=== PATIENT | female | born 1965 | race Native Hawaiian/Other Pacific Islander ===

== ENCOUNTER 2017-04-20 09:52 | Emergency (ER) | payer BC ==
[2017-04-20 10:12] VITALS: O2SAT 100
--- NOTE | 2017-04-20 11:17 | ERPHSYRPT ---
- History of Present Illness Time Seen by Provider: 04/20/17 11:11 Source: patient Exam Limitations: no limitations Patient Subjective Stated Complaint: pt states approx 2200 last night she felt dizzy, weak, nause, denies vomiting, dyspnea during the event, pain upper left should x 1 week, denies injury, denies cough, denies congestion, states right should has had pain for approximately 1 month but felt it was strain, left should pain described as dull, non radiating, has had pain in this area before with relief from chiropracter, Triage Nursing Assessment: pt alert and oriented, calm, cooperative, able to answer questions appropriately, states she feels tired but denies dizziness, denies dyspnea, states she does have asthma and allergies, feels she has to "take a deep breath" every once in awhile, patient states she us under "a great deal of stress right now" Physician History: The patient is a 52-year-old female who became dizzy last night at about 10 PM. It worsened when she would bend over to fold laundry. She then went to bed and the room began to spin. She does on and off until 4 AM when her son put 2 extra blankets on her and she fell asleep. She denies being short of breath, although she said she would wake up during the night gasping. She denies chest pain. She denies nausea or vomiting. She is now feeling much better. She comes in stating "I just want to be checked out". Her past medical history is significant for diabetes and cholecystectomy. She is also had 3 surgeries on her right knee. Timing/Duration: yesterday, resolved prior to arrival, gradual onset Severity: severe Modifying Factors: Improves With: nothing Associated Symptoms: other (dizzy) Allergies/Adverse Reactions: No Known Drug Allergies Allergy (Unverified 04/20/17 10:26) Home Medications: Desloratadine/Pseudoephedrine [Clarinex-D 12 Hour Tablet] 1 each PO DAILY [History] Metformin HCl 500 mg [Glucophage 500 MG] 1,000 mg PO DAILY 04/20/17 [ History] Hx Tetanus, Diphtheria Vaccination/Date Given: Yes Hx Influenza Vaccination/Date Given: Yes Hx Pneumococcal Vaccination/Date Given: No - Review of Systems Constitutional: No Fever, No Chills Eyes: No Symptoms Ears, Nose, & Throat: No Symptoms Respiratory: No Cough, No Dyspnea Cardiac: No Chest Pain, No Edema, No Syncope Abdominal/Gastrointestinal: No Abdominal Pain, No Nausea, No Vomiting, No Diarrhea Genitourinary Symptoms: No Dysuria Musculoskeletal: No Back Pain, No Neck Pain Skin: No Rash Neurological: Dizziness Psychological: No Symptoms Endocrine: No Symptoms Hematologic/Lymphatic: No Symptoms Immunological/Allergic: No Symptoms All Other Systems: Reviewed and Negative - Past Medical History Pertinent Past Medical History: Yes Endocrine Medical History: Diabetes Type II - Past Surgical History Past Surgical History: Yes Gastrointestinal: Cholecystectomy Musculoskeletal: Orthopedic Surgery Other Surgical History: uterine ablation - Social History Smoking Status: Never smoker Exposure to second hand smoke: No Patient Lives Alone: Yes - Female History Hx Last Menstrual Period: ablation - Nursing Vital Signs Nursing Vital Signs: Initial Vital Signs Temperature 99.6 F Temperature Source Oral Pulse Rate 84 Respiratory Rate 18 Blood Pressure [Right Arm] 120/82 Pain Intensity 0 - Physical Exam General Appearance: no apparent distress, alert Eye Exam: PERRL/EOMI, eyes nml inspection Ears, Nose, Throat Exam: normal ENT inspection, TMs normal, pharynx normal, moist mucous membranes Neck Exam: normal inspection, non-tender, supple, full range of motion Respiratory Exam: normal breath sounds, lungs clear, No respiratory distress Cardiovascular Exam: regular rate/rhythm, normal heart sounds, normal peripheral pulses Gastrointestinal/Abdomen Exam: soft, normal bowel sounds, No tenderness, No mass Pelvic Exam: deferred Rectal Exam: deferred Back Exam: normal inspection Extremity Exam: normal inspection, normal range of motion, pelvis stable Neurologic Exam: alert, oriented x 3, cooperative, normal mood/affect, nml cerebellar function, nml station & gait, sensation nml, No motor deficits Skin Exam: normal color, warm, dry, No rash Lymphatic Exam: No adenopathy SpO2 Interpretation: normal SpO2: 100 Oxygen Delivery: Room Air - Course EKG Interpreted by Me: RATE, Sinus Rhythm, NORMAL AXIS, NORMAL INTERVALS, NORMAL QRS, NORMAL ST-T - Radiology Exams Chest X-ray Interpretation: Teleradiologist Report, Negative (per DR Riley) Ordered Tests: Active Orders 24 hr Category Date Time Status EKG-ER Only STAT Care 04/20/17 11:21 Active Orthostatic Vital Signs STAT Care 05/24/17 10:33 Active CHEST 2 VIEWS (PA AND LAT) Stat Exams 04/20/17 11:22 Completed CBC W DIFF Stat Lab 04/20/17 11:45 Completed CMP Stat Lab 04/20/17 11:45 Completed HCG QUALITATIVE,SERUM Stat Lab 04/20/17 11:45 Completed TROPONIN Stat Lab 04/20/17 11:45 Completed UA W/ MICROSCOPIC Stat Lab 04/20/17 11:45 Completed Lab/Rad Data: Laboratory Result Diagrams 04/20/17 11:45 04/20/17 11:45 Laboratory Results 04/20/17 04/20/17 04/20/17 Range/Units 11:45 11:45 11:45 WBC (4.0-10.5) K/mm3 RBC (4.1-5.4) M/mm3 Hgb (12.0-16.0) gm/dl Hct (35-47) % MCV (78-100) fl MCH (26-32) pg MCHC (32-36) g/dl RDW (11.5-14.0) % Plt Count (150-450) K/mm3 MPV (6-9.5) fl Gran % (36.0-66.0) % Lymphocytes % (24.0-44.0) % Monocytes % (0.0-12.0) % Eosinophils % (0.00-5.0) % Basophils % (0.0-0.4) % Basophils # (0-0.4) Sodium 143 (136-145) mEq/L Potassium 3.6 (3.5-5.1) mEq/L Chloride 107 (98-107) mEq/L Carbon Dioxide 27.1 (21-32) mEq/L Anion Gap 12.1 (5-15) MEQ/L BUN 9 (9-20) mg/dL Creatinine 0.65 (0.55-1.30) mg/dl Estimated GFR > 60 ML/MIN Glucose 89 (70-110) MG/DL Calcium 9.1 (8.5-10.1) mg/dL Total Bilirubin 0.3 (0.2-1.0) mg/dL AST 14 L (15-37) U/L ALT 17 (12-78) U/L Alkaline Phosphatase 46 (46-116) U/L Troponin I < 0.017 (0.000-0.056) ng/ml Serum Total Protein 7.3 (6.4-8.2) gm/dL Albumin 3.6 (3.4-5.0) g/dL Serum , Qual NEGATIVE (Negative) Ur Collection Type VOID Urine Color YELLOW (YELLOW) Urine Appearance CLEAR (CLEAR) Urine pH 6.0 (5-6) Ur Specific [place] 1.010 (1.005-1.025) Urine Protein NEGATIVE (Negative) Urine Glucose (UA) NEGATIVE (NEGATIVE) mg/dL Urine Ketones NEGATIVE (NEGATIVE) Urine Nitrite NEGATIVE (NEGATIVE) Urine Bilirubin NEGATIVE (NEGATIVE) Urine Urobilinogen 0.2 (0-1) mg/dL Urine WBC (Auto) NEGATIVE (NEGATIVE) Urine RBC (Auto) SMALL (0-5) Seth/ul Urine Microscopic RBC 2-5 (0-2) /HPF Urine Microscopic WBC 0-2 (0-5) /HPF Ur Epithelial Cells FEW (FEW) /HPF Urine Bacteria RARE (NEGATIVE) /HPF Specimen Received 04/20/17 1245 04/20/17 Range/Units 11:45 WBC 6.5 (4.0-10.5) K/mm3 RBC 4.32 (4.1-5.4) M/mm3 Hgb 12.9 (12.0-16.0) gm/dl Hct 39.1 (35-47) % MCV 90.5 (78-100) fl MCH 29.9 (26-32) pg MCHC 33.0 (32-36) g/dl RDW 12.7 (11.5-14.0) % Plt Count 349 (150-450) K/mm3 MPV 10.0 H (6-9.5) fl Gran % 55.0 (36.0-66.0) % Lymphocytes % 35.6 (24.0-44.0) % Monocytes % 7.7 (0.0-12.0) % Eosinophils % 1.5 (0.00-5.0) % Basophils % 0.2 (0.0-0.4) % Basophils # 0.01 (0-0.4) Sodium (136-145) mEq/L Potassium (3.5-5.1) mEq/L Chloride (98-107) mEq/L Carbon Dioxide (21-32) mEq/L Anion Gap (5-15) MEQ/L BUN (9-20) mg/dL Creatinine (0.55-1.30) mg/dl Estimated GFR ML/MIN Glucose (70-110) MG/DL Calcium (8.5-10.1) mg/dL Total Bilirubin (0.2-1.0) mg/dL AST (15-37) U/L ALT (12-78) U/L Alkaline Phosphatase (46-116) U/L Troponin I (0.000-0.056) ng/ml Serum Total Protein (6.4-8.2) gm/dL Albumin (3.4-5.0) g/dL Serum , Qual (Negative) Ur Collection Type Urine Color (YELLOW) Urine Appearance (CLEAR) Urine pH (5-6) Ur Specific [place] (1.005-1.025) Urine Protein (Negative) Urine Glucose (UA) (NEGATIVE) mg/dL Urine Ketones (NEGATIVE) Urine Nitrite (NEGATIVE) Urine Bilirubin (NEGATIVE) Urine Urobilinogen (0-1) mg/dL Urine WBC (Auto) (NEGATIVE) Urine RBC (Auto) (0-5) Seth/ul Urine Microscopic RBC (0-2) /HPF Urine Microscopic WBC (0-5) /HPF Ur Epithelial Cells (FEW) /HPF Urine Bacteria (NEGATIVE) /HPF Specimen Received - Progress Progress: unchanged Counseled pt/family regarding: lab results, diagnosis, rad results - Departure Time of Disposition: 12:43 Departure Disposition: Home Clinical Impression: Dizziness Condition: Stable Critical Care Time: No Additional Instructions: You were dizzy last night and it has resolved. The workup you had was negative. Stay well hydrated. If the condition returns, you can either return to the ER or follow-up with your regular family doctor.
[2017-04-20 11:51] LABS: BASOPHIL % 0.2 % (0.0-0.4); Eosinophil % 1.5 % (0.00-5.0); Lymphocytes % 35.6 % (24.0-44.0); Mean Cell Volume 90.5 fl (78-100); Mean Corpuscular Hemoglobin 29.9 pg (26-32); Monocytes % 7.7 % (0.0-12.0); Platelet Count 349 K/mm3 (150-450); Red Blood Count 4.32 M/mm3 (4.1-5.4); Red Cell Distribution Width 12.7 % (11.5-14.0); White Blood Count 6.5 K/mm3 (4.0-10.5)
[2017-04-20 11:54] LABS: COMPLETE URINE MICROSCOPIC? YES; Collection Type VOID
[2017-04-20 11:59] LABS: Bacteria RARE /HPF (NEGATIVE); Epithelial Cells FEW /HPF (FEW); WBC 0-2 /HPF (0-5)
[2017-04-20 12:11] LABS: ADD URINE CULTURE? NO (NO)
[2017-04-20 12:19] LABS: ALBUMIN 3.6 g/dL (3.4-5.0); ALKALINE PHOSPHATASE 46 U/L (46-116); ANION GAP 12.1 MEQ/L (5-15); BILIRUBIN,TOTAL 0.3 mg/dL (0.2-1.0); BLOOD UREA NITROGEN 9 mg/dL (9-20); CHLORIDE 107 mEq/L (98-107); Carbon Dioxide 27.1 mEq/L (21-32); Glucose 89 MG/DL (70-110); Potassium 3.6 mEq/L (3.5-5.1); SGOT/AST 14 U/L (15-37); SGPT/ALT 17 U/L (12-78); SODIUM 143 mEq/L (136-145); Total Protein 7.3 gm/dL (6.4-8.2)
--- NOTE | 2017-04-20 12:20 | XRAY ---
Indication: Short of breath and dizziness. Comparison: None PA/lateral chest clear. Heart and mediastinal structures within normal limits. Bony thorax intact with mild pectus excavatum deformity. Impression: Nonacute chest.
[2017-04-20 12:26] LABS: TROPONIN < 0.017 ng/ml (0.000-0.056)
[2017-04-20 12:55] VITALS: BP 122/62; PULSE 81
== END 2017-04-20 12:54 | disposition home or self-care (01) ==
LOC: ED 09:52
DX: R42 Dizziness and giddiness (principal); R53.1 Weakness; R11.0 Nausea; M25.512 Pain in left shoulder; E11.9 Type 2 diabetes mellitus without complications; Z79.84 Long term (current) use of oral hypoglycemic drugs
CPT/HCPCS: 36415; 71020; 80053; 81000; 84484; 84703; 85025; 93005; 99284; 99285